=== PATIENT | female | born 1950 ===

== ENCOUNTER 2018-10-02 20:13 | Inpatient (IN) | payer MEDICARE, OTHER ==
[~2018-10-02] VITALS: Ht 154.9 cm; Wt 59.2 kg
[2018-10-02 21:20] LABS: BASOPHILS # (AUTO) 0.1 (0.0-0.1); BASOPHILS % 0.7 % (0.0-1.0); EOSINOPHILS # (AUTO) 0.4 (0.0-0.4); EOSINOPHILS % 2.5 % (0.0-6.0); HEMATOCRIT 42.5 % (34.2-44.1); HEMOGLOBIN 14.3 g/dL (12.0-16.0); LYMPHOCYTES # (AUTO) 2.6 (1.0-3.2); LYMPHOCYTES % 18.1 % (18.0-39.1); MEAN CORPUSCULAR HEMOGLOBIN 30.3 pg (28-32); MEAN CORPUSCULAR HGB CONC 33.6 g/dL (31-35); MONOCYTES # (AUTO) 0.7 (0.2-0.8); MONOCYTES % 4.6 % (4.4-11.3); NEUTROPHILS # (AUTO) 10.4 (2.1-6.9); NEUTROPHILS % 73.7 % (38.7-80.0); PLATELET COUNT 161 x10e3/uL (140-360); RED BLOOD COUNT 4.72 x10e6/uL (3.6-5.1); RED CELL DISTRIBUTION WIDTH 13.8 % (11.7-14.4)
--- NOTE | 2018-10-02 22:03 | Diagnostic Imaging Report ---
EXAMINATION: CHEST SINGLE (PORTABLE) INDICATION: CHEST PAIN COMPARISON: None FINDINGS: AP view TUBES and LINES: None. LUNGS: Lungs are well inflated. Lungs are clear. There is no evidence of pneumonia or pulmonary edema. PLEURA: No pleural effusion or pneumothorax. HEART AND MEDIASTINUM: Aortic arch calcifications. The cardiomediastinal silhouette is otherwise unremarkable. BONES AND SOFT TISSUES: No acute osseous lesion. Soft tissues are unremarkable. UPPER ABDOMEN: No free air under the diaphragm. IMPRESSION: No acute thoracic abnormality. Signed by: DR. Raheel Edgar MD on 10/02/2018 9:59 PM
[2018-10-02] MEDS ORDERED: ONDANSETRON HCL INJ 2 MG/ML VIAL IV STA (22:08)
--- NOTE | 2018-10-02 22:12 | NUR ---
GRE[facility] REDRAWN
--- NOTE | 2018-10-02 22:12 | NUR ---
BILATERAL ARM BP TAKEN
[2018-10-02] MEDS ORDERED: MORPHINE SULFATE INJ 4 MG/ML INJ IV ONE (22:15)
[2018-10-02] MEDS ORDERED: CLONIDINE HCL 0.1 MG TAB PO ONE (22:15)
[2018-10-02] MEDS ORDERED: METOPROLOL TARTRATE INJ 1 MG/ML VIAL IV ONE ×2 (22:15→23:00)
[2018-10-02] MEDS ORDERED: PANTOPRAZOLE 40 MG 10ML VIAL IV STA (22:20)
[2018-10-02 22:25] LABS: BILIRUBIN,URINE NEGATIVE (NEGATIVE); CLARITY,URINE CLEAR (CLEAR); COLOR,URINE STRAW (YELLOW); KETONES,URINE NEGATIVE (NEGATIVE); LEUKOCYTE ESTERASE ,URINE NEGATIVE (NEGATIVE); NITRITE,URINE NEGATIVE (NEGATIVE); PROTEIN,URINE DIPSTICK 2+ (NEGATIVE); URINE UROBILINOGEN 0.2 mg/dL (0.2 - 1)
[2018-10-02 22:37] LABS: BACTERIA,URINE MODERATE /HPF; EPITHELIAL CELLS,URINE FEW /LPF; RBC,URINE 0-5 /HPF (0-5)
[2018-10-02 22:42] LABS: ALBUMIN/GLOBULIN RATIO 1.2 (0.8-2.0); ANION GAP 13.5 mmol/L (8-16); CALCIUM 9.6 mg/dL (8.4-10.2); CREATININE, SERUM 1.03 mg/dL (0.57-1.11); POTASSIUM 3.5 mmol/L (3.5-5.1)
[2018-10-02 22:51] LABS: AMYLASE 88 U/L (25-125); LIPASE 50 U/L (8-78)
[2018-10-02 22:56] LABS: INR 0.87; PROTHROMBIN TIME 12.7 seconds (11.9-14.5)
[2018-10-02 22:57] LABS: PARTIAL THROMBOPLASTIN TIME 26.6 seconds (23.8-35.5)
[2018-10-02] MEDS ORDERED: SODIUM CHLORIDE 0.9% 250ML 250 ML IV ONE (23:30)
[2018-10-03] VITALS (36 sets, daily range): BP systolic 125–170; BP diastolic 61–147
--- NOTE | 2018-10-03 01:38 | Diagnostic Imaging Report ---
EXAM: CT Abdomen and Pelvis WITH contrast INDICATION: ^upper abd pain radiating to between shoulder blades ^Y COMPARISON: None. TECHNIQUE: Abdomen and pelvis were scanned utilizing a multidetector helical scanner from the lung base to the pubic symphysis after administration of IV contrast. Coronal and sagittal reformations were obtained. Routine protocol was performed. Scan was performed during portal venous phase. IV CONTRAST: 100 mL of Isovue-370 ORAL CONTRAST: Water COMPLICATIONS: None RADIATION DOSE: Total DLP: 991.1 mGy*cm Estimated effective dose: (DLP x 0.015 x size factor) mSv Dose modulation, iterative reconstruction, and/or weight based adjustment of the mA/kV was utilized to reduce the radiation dose to as low as reasonably achievable. FINDINGS: LINES and TUBES: None. LOWER THORAX: Please refer to same-day chest CTA. HEPATOBILIARY: No focal hepatic lesions. No biliary ductal dilation. GALLBLADDER: No radio-opaque stones or sludge. No wall thickening. SPLEEN: No splenomegaly. PANCREAS: No focal masses or ductal dilatation. ADRENALS: No adrenal nodules KIDNEYS/URETERS: Kidneys enhance symmetrically. No hydronephrosis. Scattered subcentimeter hypodensities are too small to characterize. Scattered lobulations. No stones. GI TRACT: No abnormal distention, wall thickening, or evidence of bowel obstruction. Appendix is normal. PELVIC ORGANS/BLADDER: Hysterectomy. Otherwise, unremarkable. LYMPH NODES: No lymphadenopathy. VESSELS: Abdominal aortic aneurysm with scattered areas of mural thrombus. Aorta measures up to 3.8 cm at the diaphragmatic hiatus, 3.8 cm slightly inferior to the SMA origin, 3.8 cm at the HERMES origin. PERITONEUM / RETROPERITONEUM: No free air or fluid. BONES: There are degenerative changes in the lumbar spine. SOFT TISSUES: Unremarkable. IMPRESSION: 1. No acute abnormalities in the abdomen or pelvis. 2. Abdominal aortic aneurysm measuring up to 3.8 cm. Signed by: DR. Raheel Edgar MD on 10/03/2018 1:34 AM
[2018-10-03] MEDS: NICARDIPINE 20MG/200ML PREMIX 200 ML IV PRN ×2 (01:46→05:13)
--- NOTE | 2018-10-03 01:49 | Diagnostic Imaging Report ---
EXAM: CTA Chest WITHOUT AND WITH contrast 10/03/2018 10:07 PM INDICATION: Chest/mid scapular pain. eval for aortic disection ^Y COMPARISON: Chest x-ray 09/29/2018 TECHNIQUE: Chest was scanned utilizing a multidetector helical scanner from the lung apex through the level of the adrenal glands without and with administration of IV contrast. Coronal and sagittal reformations were obtained. Dissection protocol was performed. IV CONTRAST: 100 mL of Isovue-370 COMPLICATIONS: None RADIATION DOSE: Total DLP: 991 mGy*cm Estimated effective dose: (DLP x 0.014 x size factor) mSv Dose modulation, iterative reconstruction, and/or weight based adjustment of the mA/kV was utilized to reduce the radiation dose to as low as reasonably achievable. 3-D volume renderings were created. FINDINGS: LINES/ TUBES: None. LUNGS AND AIRWAYS: The lungs are unremarkable. Airways are normal. PLEURA: The pleural spaces are clear. HEART AND MEDIASTINUM: Aberrant right subclavian artery with retroesophageal course. The thyroid gland is normal. No mediastinal, hilar or axillary lymphadenopathy. The heart is normal in size.. There is no pericardial effusion. Coronary artery artery calcifications and stents. Aortic plaques: Severe. All of the arch branch vessels appear widely patent in their proximal portions. Returning Officer dimensions of the thoracic aorta are as follows: 3.4 cm at the mid ascending aorta 3.1 cm at the proximal descending thoracic aorta 2.9 cm at the distal descending thoracic aorta. Please refer to same-day CT abdomen for description of abdominal aortic aneurysm. Hepatic artery with direct takeoff from the aorta. UPPER ABDOMEN: Please refer to same-day CT chest abdomen and pelvis. BONES: There are degenerative changes in the thoracic spine. SOFT TISSUES: Unremarkable. IMPRESSION: No evidence of aortic dissection. Borderline aneurysmal dilatation of the proximal descending thoracic aorta. Signed by: DR. Raheel Edgar MD on 10/03/2018 1:46 AM
[2018-10-03] MEDS ORDERED: DEXTROSE 50% SYRINGE 50 ML IV PRN (02:15)
[2018-10-03] MEDS ORDERED: SODIUM CHLORIDE FLUSH 10 ML SYR INJ PRN (02:15)
[2018-10-03] MEDS ORDERED: ONDANSETRON HCL INJ 2 MG/ML VIAL IV PRN (02:15)
--- OUTSIDE RECORDS SUMMARY | 2018-10-03 02:15 | XMS REPORT ---
Author Author [facility] Address Unknown Phone Unavailable Care Team Providers Care Crm Consultant Name Role Phone Mg BURROWS Unavailable Unavailable Problems This patient has no known problems. Allergies, Adverse Reactions, Alerts This patient has no known allergies or adverse reactions. Medications This patient has no known medications. Results Test Description Test Time Test Comments Text Results Atomic Results Result Comments CTA CHEST 2018-10-03 01:35:00 [place] [address] Patient Name: KANDICE REGAN MR #: [id number] : 1950 Age/Sex: 67/F Req #: [id number] Adm Physician: Ordered by: SHARYN BURROWS MD Report #: [id number] Location: ER Room/Bed: Procedure: [id number] CT/CTA CHEST Exam Date: Exam Time: REPORT STATUS: Signed EXAM: CTA Chest WITHOUT AND WITH contrast 10/03/2018 10:07 PM INDICATION: Chest/mid scapular pain. eval for aortic disection Y COMPARISON: Chest x- ray 09/29/2018 TECHNIQUE: Chest was scanned utilizing a multidetector helical scanner from the lung apex through the level of the adrenal glands without and with administration of IV contrast. Coronal and sagittal reformations were obtained. Dissection protocol was performed. IV CONTRAST: 100 mL of Isovue-370 COMPLICATIONS: None RADIATION DOSE: Total DLP: 991 mGy*cm Estimated effective dose: (DLP x 0.014 x size factor) mSv Dose modulation, iterative reconstruction, and/or weight based adjustment of the mA/kV was utilized to reduce the radiation dose to as low as reasonably achievable. 3-D volume renderings were created. FINDINGS: LINES/ TUBES: None. LUNGS AND AIRWAYS: The lungs are unremarkable. Airways are normal. PLEURA: The pleural spaces are clear. HEART AND MEDIASTINUM: Aberrant right subclavian artery with retroesophageal course. The thyroid gland is normal. No mediastinal, hilar or axillary lymphadenopathy. The heart is normal in size.. There is no pericardial effusion. Coronary artery artery calcifications and stents. Aortic plaques: Severe. All of the arch branch vessels appear widely patent in their proximal portions. Publicity Expert dimensions of the thoracic aorta are as follows: 3.4 cm at the mid ascending aorta 3.1 cm at the proximal descending thoracic aorta 2.9 cm at the distal descending thoracic aorta. Please refer to same-day CT abdomen for description of abdominal aortic aneur ysm. Hepatic artery with direct takeoff from the aorta. UPPER ABDOMEN: Please refer to same-day CT chest abdomen and pelvis. BONES: There are degenerative changes in the thoracic spine. SOFT TISSUES: Unremarkable. IMPRESSION: No evidence of aortic dissection. Borderline aneurysmal dilatation of the proximal descending thoracic aorta. Signed by: DR. Raheel Edgar MD on 10/03/2018 1:46 AM Dictated By: RAHEEL EDGAR MD 5 Transcribed By: AUSTIN on 10/03/18145 COPY TO: SHARYN BURROWS MD CT ABDOMEN/PELVIS W 2018-10-03 01:22:00 [place] [address] Patient Name: KANDICE REGAN MR #: [id number] : 1950 Age/Sex: 67/F Req #: [id number] Adm Physician: Ordered by: SHARYN BURROWS MD Report #: [id number] Location: Room/Bed: Procedure: [id number] CT/CT ABDOMEN/PELVIS W Exam Date: Exam Time: REPORT STATUS: Signed EXAM: CT Abdomen and Pelvis WITH contrast INDICATION: upper abd pain radiating to between shoulder blades Y COMPARISON: None. TECHNIQUE: Abdomen and pelvis were scanned utilizing a multidetector helical scanner from the lung base to the pubic symphysis after administration of IV contrast. Coronal and sagittal reformations were obtained. Routine protocol was performed. Scan was performed during portal venous phase. IV CONTRA ST: 100 mL of Isovue-370 ORAL CONTRAST: Water COMPLICATIONS: None RADIATION DOSE: Total DLP: 991.1 mGy*cm Estimated effective dose: (DLP x 0.015 x size factor) mSv Dose modulation, iterative reconstruction, and/or weight based adjustment of the mA/kV was utilized to reduce the radiation dose to as low as reasonably achievable. FINDINGS: LINES and TUBES: None. LOWER THORAX: Please refer to same-day chest CTA. HEPATOBILIARY: No focal hepatic lesions. No biliary ductal dilation. GALLBLADDER: No radio-opaque stones or sludge. No wall thickening. SPLEEN: No splenomegaly. PANCREAS: No focal masses or ductal dilatation. ADRENALS: No adrenal nodules KIDNEYS/URETERS: Kidneys enhance symmetrically. No hydronephrosis. Scattered subcentimeter hypodensities are too small to characterize. Scattered lobulations. No stones. GI TRACT: No abnormal distention, wall thickening, or evidence of bowel obstruction. Appendix is normal. PELVIC ORGANS/BLADDER: Hysterectomy. Otherwise, unremarkable. LYMPH NODES: No lymphadenopathy. VESSELS: Abdominal aortic aneurysm with scattered areas of mural thrombus. Aorta measures up to 3.8 cm at the diaphragmatic hiatus, 3.8 cm slightly inferior to the SMA origin, 3.8 cm at the HERMES origin. PERITONEUM / RETROPERITONEUM: No free air or fluid. BONES: There are degenerative changes in the lumbar spine. SOFT TISSUES: Unremarkable. IMPRESSION: 1. No acute abnormalities in the abdomen or pelvis. 2. Abdominal aortic aneurysm measuring up to 3.8 cm. Signed by: DR. Raheel Edgar MD on 10/03/2018 1:34 AM Dictated By: RAHEEL EDGAR MD 3 Transcribed By: AUSTIN on 10/03/18133 COPY TO: SHARYN BURROWS MD CHEST SINGLE (PORTABLE) 2018-10-02 21:58:00 [place] [address] Patient Name: KANDICE REGAN MR #: [id number] : 1950 Age/Sex: 67/F Req #: [id number] Adm Physician: Ordered by: SHARYN BURROWS MD Report #: [id number] Location: ER Room/Bed: Procedure: [id number] DX/CHEST SINGLE (PORTABLE) Exam Date: 10/02/18 Exam Time: 2100 REPORT STATUS: Signed EXAMINATION: CHEST SINGLE (PORTABLE) INDICATION: CHEST PAIN COMPARISON: None FINDINGS: AP view TUBES and LINES: None. LUNGS: Lungs are well inflated. Lungs are clear. There is no evidence of pneumonia or pulmonary edema. PLEURA: No pleural effusion or pneumothorax. HEART AND MEDIASTINUM: Aortic arch calcifications. The cardiomediastinal silhouette is otherwise unremarkable. BONES AND SOFT TISSUES: No acute osseous lesion. Soft tissues are unremarkable. UPPER ABDOMEN: No free air under the diaphragm. IMPRESSION: No acute thoracic abnormality. Signed by: DR. Raheel Edgar MD on 10/02/2018 9:59 PM Dictated By: RAHEEL EDGAR MD 58 Transcribed By: AUSTIN on 10/02/182158 COPY TO: SHARYN BURROWS MD
[2018-10-03] MEDS ORDERED: SODIUM CHLORIDE 0.9% 100 ML 100 ML ONE (03:49)
[2018-10-03] MEDS ORDERED: IOPAMIDOL 370 MG/ML 200 ML INFUS..BTL INJ ONE (03:50)
[2018-10-03] MEDS: INSULIN REGULAR, HUMAN 100 UNIT/1 ML 3ML VIAL SQ SCH ×4 (07:30→20:50)
--- NOTE | 2018-10-03 08:00 | NUR ---
Dr Aranda to bedside. Patient and significant other aware of diagnosis and agree with plan of care. Orders rec'd. Echo and renal US pending, department aware.
[2018-10-03] MEDS: PANTOPRAZOLE 40 MG 10ML VIAL IV SCH ×2 (09:11→17:05)
[2018-10-03] MEDS: METOPROLOL SUCCINATE 25 MG TAB XL PO SCH (09:11)
[2018-10-03] MEDS: ASPIRIN 325 MG TAB PO SCH (09:11)
[2018-10-03 09:27] LABS: FREE THYROXINE INDEX 2.4624 (1.4-3.8); THYROID STIMULATING HORMONE 0.901 uIU/mL (0.350-4.940)
[2018-10-03] MEDS ORDERED: PANTOPRAZOLE SOD 40 MG TABEC PO ONE (09:30)
--- NOTE | 2018-10-03 09:50 | History and Physical ---
Patient comes in with abdominal pain and back pain. HISTORY OF PRESENTING ILLNESS: This is Ms. Jania Lancaster with a history of coronary artery disease and with a history of hypertension with usual state of health until she was sitting down to eat yesterday. After eating soup, the patient got up and had a sudden bout of back pain which is described as 10 out of 10 in intensity, lasted all day long and lasted through the night in the ER. Patient came in, was admitted for rule out acute coronary syndrome and also for history of coronary artery disease and abdominal pain. PAST MEDICAL HISTORY 1. History of coronary artery disease. 2. History of hypertension. 3. History of hyperlipidemia. PAST SURGICAL HISTORY: History of having coronary stent. Patient had a stent about 6 years ago. Otherwise noncontributory. MEDICATIONS: Medication noncompliance. The patient has been taking no medicine for the last 2 to 3 years. She was on lisinopril-hydrochlorothiazide, dose unknown, probably 20/12.5. Stopped her statins and also stopped her beta blockade. SOCIAL HISTORY: No ETOH, no IV drug abuse. Patient does smoke. She smokes about half pack a day every day. FAMILY HISTORY: Positive for coronary artery disease in both father and mother. REVIEW OF SYSTEMS: Negative for chest pain. No shortness of breath. Positive for some nausea yesterday. No vomiting, no diarrhea, no constipation, no rectal bleeding, no hematochezia, no hematemesis, no diplopia, no blurry vision. Positive for back pain and positive also for reflux symptoms. PHYSICAL EXAMINATION GENERAL: Patient is alert and oriented x3. VITAL SIGNS: Temperature is 98.1, pulse of 78, blood pressure 152/78. She is on Cardene drip. Pulse oximetry 100% on room air. HEENT: Normocephalic, atraumatic. Pupils are reactive to light and accommodation. CVS: S1, S2 normal. Regular rate and rhythm. ABDOMEN: Nontender, nondistended. EXTREMITIES: No clubbing. No cyanosis. No edema. MUSCULOSKELETAL: Back, thoracic spine, no tenderness palpated. LABORATORY VALUES: Initial white count was 14,000 with shift of 10.4, hemoglobin of 14.3 and hematocrit of 42.5. Chemistries show sodium of 139, potassium of 3.5, BUN of 26, creatinine of 1.03. Glucose was 150. ALT, AST, alkaline phosphatase are normal. CK-MB 1.0, troponin 0.067, CK was 166, BNP was 98.7. Amylase 88, lipase 50. Urine showed trace blood, ketones negative, leukocyte esterase negative, and white count was 6 to 10 present. IMAGING STUDIES: Initial chest x-ray shows no acute thoracic abnormalities. Chest CT showed 3.4 aorta diameter and 3.1 cm proximal descending aorta, and 2.9 thoracic aorta. The patient otherwise, have no evidence of aortic dissections. Abdominal CT and pelvis shows no acute abnormalities in the abdomen or pelvis. Abdominal aortic aneurysm measuring up to 3.8 cm. ASSESSMENT 1. Hypertensive emergency. Patient is on the Cardene drip at this time. Plan is to down titrating the drip. 2. Patient can be added on a beta blockade. PLAN 1. I am going to start the patient on metoprolol XL 25 mg. 2. Start the patient on statin, atorvastatin 40 mg. Check lipids. Echocardiogram is ordered. 3. Also, consult with has been done too. 4. Patient is a smoker. Smoking cessation has been advised and with a strong family history of heart disease and heart disease in the past with smoking, a stress test/cardiac cath has been recommended. Patient will follow up with cardiology on that. We will continue to monitor the patient. Labs will be done tomorrow for leukocytosis to down trend it and also culture urine. Further recommendation per clinical course. Job#: [id number]
[2018-10-03] MEDS ORDERED: HYDROCHLOROTHIAZIDE 25 MG TAB PO SCH (10:45)
[2018-10-03] MEDS ORDERED: CLOPIDOGREL BISULFATE 75 MG TAB PO ONE (11:00)
[2018-10-03] MEDS: LISINOPRIL 10 MG TAB PO SCH ×2 (11:28→17:05)
--- NOTE | 2018-10-03 13:47 | Diagnostic Imaging Report ---
Retroperitoneal ultrasound Indication: Pain Technique: Select images from retroperitoneal ultrasound provided for interpretation: Comparison: CT abdomen/pelvis 0018 hours. Findings: The right kidney measures 9.9 cm in greatest length. The echotexture is mildly increased. There is no evidence for mass. There is no collecting system dilatation or evidence of obstruction. No renal calculi evident. No adjacent free fluid or fluid collections. The left kidney measures 10.7 cm in greatest length. The echotexture is mildly increased. There is no evidence for mass. There is no collecting system dilatation or evidence of obstruction. No renal calculi evident. No adjacent free fluid or fluid collections. Bladder is well distended and is normal. Ureteral jets are visible. No free fluid in the pelvis. Survey images of the liver and spleen demonstrate no abnormalities. IMPRESSION: 1. Mildly increased renal echotexture suggestive of medical renal disease. No hydronephrosis or renal mass. 2. Sonographically normal bladder. Signed by: Dr. Reyes Ray MD on 10/03/2018 1:43 PM
--- NOTE | 2018-10-03 15:37 | Consultation ---
DATE OF CONSULTATION: October 03, 2018 CARDIAC CONSULTATION REASON FOR CONSULTATION: Malignant hypertension, abdominal, and chest pain. HISTORY: This is a very and very and very poorly historian. She is 67. She is . She does not take any medication. She is known to have coronary artery disease status post 2 stent placements 6 years ago in [facility] and hypertension. She is here with her who is working here from [place]. They are on their way back this weekend to [place]. She came to this institution because she started having sudden back pain, epigastric, and possible lower retrosternal pain. There was no nausea and no vomiting. The pain was very severe, lasted all the day long, and then it got progressively worse. She was worried about that and she came to the emergency room. Her blood pressure was quite elevated with systolic of almost 200. She was started on nicardipine. Her cardiac enzymes are normal. Her CT chest showed dilated ascending aorta at 3.8, abdominal aorta at 3.8 cm only. She was started on nicardipine, admitted for further management. Cardiac consultation is obtained. Serial cardiac enzymes are negative. Patient said she is not having angina prior to this admission. She is relatively active. She denied having any orthopnea and paroxysmal nocturnal dyspnea. Her pain is not dissecting in nature. PAST MEDICAL HISTORY 1. Coronary artery disease status post 2 stents 6 years ago in [facility]. 2. Hypertension. 3. Hyperlipidemia. 4. Hysterectomy. 5. Tonsillectomy. 6. Left breast lumpectomy. HOME MEDICATIONS: None. She does not take any medications. SOCIAL HISTORY: She is . Unfortunately, she is a smoker, but she is not alcohol drinker. FAMILY HISTORY: Father at age 69. He was diabetic and possible coronary artery disease. Mother of breast cancer at age 52. Three brothers, she lost a brother to complication of diabetes in his 60s. Eight sisters, 3 sisters , 1 of them of diabetes complication and second with ovarian cancer. REVIEW OF SYSTEMS: Was extensive, will be summarized for clarity. GENERAL: No fever. No chills. HEENT: No vision problem. No hearing problem. CARDIAC AND PULMONARY: As per acute illness. No pleuritic chest pain. No leg swelling. GI: No hematemesis. No melena. : No hematuria. No dysuria. MUSCULOSKELETAL: Chronic back pain. NEUROLOGICAL: No seizure activity. No weakness. PHYSICAL EXAMINATION VITAL SIGNS: Height of 5 feet 1 inches, weight of 126 pounds, blood pressure 150/80, on nicardipine, heart rate of 80, and respiratory rate of 18. HEENT: Pupils are reactive. NECK: No elevation of jugular venous pulsation. No bruit. CHEST: Clear to auscultation and percussion. HEART: PMI 5th left intercostal space. Normal 1st and 2nd heart sounds. ABDOMEN: Soft with good bowel sounds. No organomegaly. No abdominal bruits. EXTREMITIES: No cyanosis. No clubbing. No edema. Distal pulses are present. There is no delay between pulses. NEUROLOGIC: Awake, alert, and oriented. No motor or sensory deficits. LABORATORY DATA: BUN of 26, creatinine of 1, sodium of 139, and potassium of 3.9. White blood cell count of 14.1, hemoglobin of 14.3, and hematocrit 42%. TSH of 0.9. CT chest and CT abdomen as per report. There is abdominal aortic aneurysm at 3.8 cm, but there is no evidence of dissection. IMPRESSION AND PLAN 1. Hypertensive emergency. 2. Pain back does not seem to be dissecting abdominal aortic aneurysm pain. I am very worried about coronary artery disease. Patient is poorly historian. We had lengthy discussion with the patient and her . Plan will be for aggressive medical therapy. Patient will start on lisinopril and hydrochlorothiazide. Beta servando is a must. Statin is started already. We will load with Plavix. We will try to control her blood pressure. Options of workup are discussed with the patient and her . They prefer to go back to home and have their workup home after stabilization. We will follow patient's progression with you and would like to thank you for your kind referral. Job#: [id number] GLENIS
[2018-10-03 17:25] LABS: CREATINE KINASE MB 0.8 ng/mL (0-5.0)
--- NOTE | 2018-10-03 18:52 | NUR ---
Spoke with Dr Aranda, orders rec'd. Bedside report given to NAIDA Sousa.
[2018-10-03] MEDS: ATORVASTATIN 20 MG TAB PO SCH (21:10)
[2018-10-03] MEDS: MORPHINE SULFATE 2 MG/ML SYR IV PRN (21:37)
[2018-10-03] MEDS ORDERED: MORPHINE SULFATE INJ 4 MG/ML INJ ONE (21:41)
--- NOTE | 2018-10-03 21:43 | NUR ---
Medicated for c/o pain.
[2018-10-04] VITALS (38 sets, daily range): BP systolic 129–177; BP diastolic 64–102
--- NOTE | 2018-10-04 04:00 | NUR ---
Blood drawn for AM labs.
[2018-10-04] MEDS ORDERED: MORPHINE SULFATE INJ 4 MG/ML INJ ONE (04:15)
[2018-10-04] MEDS: MORPHINE SULFATE 2 MG/ML SYR IV PRN (04:24)
--- NOTE | 2018-10-04 04:24 | NUR ---
Medicated for c/o back pain.
[2018-10-04 04:53] LABS: BASOPHILS # (AUTO) 0.1 (0.0-0.1); BASOPHILS % 0.5 % (0.0-1.0); EOSINOPHILS # (AUTO) 0.4 (0.0-0.4); EOSINOPHILS % 2.9 % (0.0-6.0); HEMATOCRIT 42.1 % (34.2-44.1); HEMOGLOBIN 13.9 g/dL (12.0-16.0); LYMPHOCYTES # (AUTO) 1.9 (1.0-3.2); LYMPHOCYTES % 13.9 % (18.0-39.1); MEAN CORPUSCULAR HEMOGLOBIN 29.3 pg (28-32); MEAN CORPUSCULAR VOLUME 88.8 fL (81-99); MONOCYTES % 7.3 % (4.4-11.3); NEUTROPHILS # (AUTO) 10.1 (2.1-6.9); PLATELET COUNT 152 x10e3/uL (140-360); RED BLOOD COUNT 4.74 x10e6/uL (3.6-5.1); RED CELL DISTRIBUTION WIDTH 13.7 % (11.7-14.4)
[2018-10-04 05:14] LABS: ALBUMIN 3.6 g/dL (3.5-5.0); ANION GAP 13.2 mmol/L (8-16); CALCIUM 9.5 mg/dL (8.4-10.2); CREATININE, SERUM 1.08 mg/dL (0.57-1.11); POTASSIUM 3.2 mmol/L (3.5-5.1)
[2018-10-04 05:18] LABS: CHOL/HDL RATIO 4.3 (3.0-3.6)
[2018-10-04] MEDS: INSULIN REGULAR, HUMAN 100 UNIT/1 ML 3ML VIAL SQ SCH ×4 (07:30→21:00)
[2018-10-04] MEDS: MORPHINE SULFATE INJ 4 MG/ML INJ IV PRN ×2 (08:25→15:37)
--- NOTE | 2018-10-04 08:32 | NUR ---
Dr Aranda to bedside. Orders rec'd.
--- NOTE | 2018-10-04 08:58 | Progress Note ---
DATE: SUBJECTIVE: Patient is here for chest pain, hypertensive emergency. Still on Cardene drip. Currently, patient still has back pain which is intractable at times and continues to have increased blood pressure secondary to the back pain. ACTIVE MEDICATIONS: Aspirin, atorvastatin, hydrochlorothiazide, lisinopril, metoprolol, nicardipine drip, nicotine transdermal, pantoprazole, and sodium chloride. Patient did not take the Prinivil or the hydrochlorothiazide yesterday secondary to apparent cough that has been persistent for her. PHYSICAL EXAMINATION VITAL SIGNS: Temperature is afebrile at 98.6, blood pressure is 148/86, pulse oximetry 98%. HEENT: Normocephalic, atraumatic. Pupils are reactive to light and accommodation. CVS: S1, S2 normal. Regular rate and rhythm. ABDOMEN: Nontender, nondistended. EXTREMITIES: No clubbing, no cyanosis, and/or no edema. ASSESSMENT 1. Accelerated hypertension. 2. Back pain very concerning for coronary artery disease. 3. Hyperlipidemia. 4. History of coronary artery disease. PLAN 1. We have talked to the patient at length. It would possibly be better to do cardiac investigations while the patient is here and possible cardiac cath by Dr. Miranda. 2. Continue on beta blockade, statin and we will switch her to an ARB because of her cough. Continue monitoring the patient. Aspirin is on board and possible cath by Dr. Miranda later on or in the morning. Further recommendation per clinical course. We will continue monitoring the patient along with the consultants. Job#: [id number]
[2018-10-04] MEDS ORDERED: CLOPIDOGREL BISULFATE 75 MG TAB PO SCH (09:00)
[2018-10-04] MEDS ORDERED: POTASSIUM CHLORIDE 10MEQ EA PO ONE (09:00)
[2018-10-04] MEDS ORDERED: LOSARTAN POTASSIUM 100 MG TAB PO SCH (09:00)
[2018-10-04] MEDS: PANTOPRAZOLE 40 MG 10ML VIAL IV SCH ×2 (10:00→16:06)
[2018-10-04] MEDS: METOPROLOL SUCCINATE 25 MG TAB XL PO SCH (10:00)
[2018-10-04] MEDS: NICOTINE 14 MG/EA PATCH TOP SCH (10:10)
[2018-10-04] MEDS: ASPIRIN 325 MG TAB PO SCH (11:23)
[2018-10-04] MEDS: SODIUM CHLORIDE 0.9% 1000ML 1,000 ML IV SCH ×3 (12:00→22:00)
[2018-10-04] MEDS ORDERED: SODIUM CHLORIDE 0.9% 1000ML 1,000 ML ONE ×2 (12:43→12:49)
[2018-10-04] MEDS ORDERED: FENTANYL CITRATE/PF 100MCG/2 ML INJ ONE (12:43)
[2018-10-04] MEDS ORDERED: MIDAZOLAM HCL 2 MG/2 ML VIAL ONE (12:43)
[2018-10-04] MEDS ORDERED: HEPARIN SOD/SOD CHLORIDE 2,000 ML ONE (12:43)
[2018-10-04] MEDS ORDERED: IOPAMIDOL 370 MG/ML 200 ML INFUS..BTL INJ ONE (12:43)
[2018-10-04] MEDS ORDERED: LIDOCAINE HCL 1% LOCAL INJ 20 ML VIAL ONE (12:44)
--- NOTE | 2018-10-04 13:20 | NUR ---
Dr Miranda at bedside. Patient to Tapering Machine Operator via bed.
--- NOTE | 2018-10-04 14:35 | NUR ---
1435 Patient to room via bed BP 192/95. RN states Dr Miranda will be to bedside in 15 minutes.
[2018-10-04] MEDS: LOSARTAN POTASSIUM 25 MG TAB PO SCH (16:06)
[2018-10-04] MEDS: AMLODIPINE BESYLATE 5 MG TAB PO SCH (16:07)
--- NOTE | 2018-10-04 20:27 | Operative Report ---
DATE OF PROCEDURE: October 04, 2018 TITLE OF PROCEDURES 1. Left cardiac catheterization. 2. Abdominal angiogram. INDICATIONS: Patient admitted, continued to have severe chest pain, requiring multiple morphine injections. Also, she got abdominal aortic aneurysm and she is also having severe abdominal pain. Patient is status post 2-vessel PCI and she is having repeated severe pain, requiring multiple pain medication. Case done urgently on Friday almost at 2 o'clock. TECHNICAL DETAILS: After the usual sterile preparation and draping procedure, intravenous Versed given for sedation and local Xylocaine for anesthesia. A 4-Macedonian sheath established in place. Ileana left and 3DRC catheter to engage the coronary, pigtail for hemodynamic measurement, left ventriculogram and abdominal angiogram. Of note because of presence of AAA, all the exchanges were done using long J-wire. There were no complications. No blood loss. Patient tolerated the procedure. RESULTS A. Coronary angiogram. 1. Left main, 70% diffuse disease with mean gradient of 5 mmHg on pullback from the left main to the aorta. 2. LAD is bifid lesion. There is stent in the LAD, which is totally occluded with faint collateral. There is 80% lesion in large diagonal. 3. Circumflex coronary artery. There is proximally 70% lesion. There is stent extending to the 1st OM, which is large. The proper circ is diffusely diseased after that origin giving small OM2. 4. Right coronary artery several plaques at 40% across its course. There was probably 50% at the mid RCA. B. Hemodynamics aorta pressure 140/80. LV pressure 140/20. C. Left ventriculogram in the right anterior oblique view, very hypercontractile ventricle with ejection fraction of 60%. Abdominal angiogram: There is definitely presence of abdominal aortic aneurysm, suprarenal and infrarenal. There are several calcified plaques and ulcerated plaque was noted just distal to the right renal artery. The right renal artery got severe diseased at its origin and the right kidney seems to be smaller than the left kidney. The left kidney origin is low. IMPRESSION 1. Severe left main and 2-vessel coronary artery disease. 2. Preserved left ventricular systolic function. 3. Dilated aortic root. 4. Abdominal aortic aneurysm, suprarenal and infrarenal with low origin of the left renal artery extending to the bifurcation. RECOMMENDATIONS: CV surgery evaluation. I should mention that we called the radiologist to review the CT scan of abdomen, both superior and inferior mesenteric artery. There is no dissecting aneurysm. COMPLICATIONS: None. BLOOD LOSS: None. Job#: [id number] RTY
[2018-10-04] MEDS: ATORVASTATIN 20 MG TAB PO SCH (21:15)
--- NOTE | 2018-10-04 22:10 | Consultation ---
DATE OF CONSULTATION: REASON FOR CONSULTATION: Coronary artery disease, evaluation for coronary artery bypass surgery; requested by Dr. Parish Miranda. HISTORY: I saw and evaluated this patient on October 04, 2018. She is a 67-year-old lady with a history of coronary artery disease and coronary artery stenting. She presented with back pain and lower retrosternal pain. There was no nausea or vomiting. The pain began in the morning and lasted all day. As it progressively worsened, she came to the emergency room. Blood pressure was elevated with systolic of almost 200. She was started on nicardipine. Cardiac enzymes were normal. A CT scan of the chest showed a somewhat dilated ascending aorta at 3.8 cm as well as an abdominal aorta that was somewhat dilated at 3.8 cm as well. Because of the chest pain, cardiac catheterization was performed today. There is a 70% left main coronary artery stenosis, there was an occluded stent in the LAD. There is a large diagonal. The LAD distal to the stent is quite small. There is a high-grade stenosis in the proximal circumflex. The right coronary artery has only 30% to 40% lesions and nothing high grade. Left ventriculogram shows EF 60%. Evaluation for surgery has been requested. The patient has had previous coronary artery stenting, but the details are unclear. She was on Plavix, but it was discontinued at some point, possibly because of cost. She was on lisinopril, but also discontinued this because of presumed side effects. There is no history of PND or orthopnea. She denies previous episodes of chest pain. CT scan did not show any evidence of dissection. There is no peripheral edema. Cardiac catheterization was performed on October 04, 2018. There is a history of coronary artery disease in her sisters. She is a smoker and continues to smoke. She was not taking any medicines at home. Referring business controller is Dr. Parish Miranda. PAST MEDICAL HISTORY: Coronary artery disease with stents that were placed in the [facility] about 6 years ago, positive for hypertension, hyperlipidemia, hysterectomy, tonsillectomy, and a lumpectomy. MEDICATIONS AT HOME: None. ALLERGIES: None. SOCIAL HISTORY: . One-pack per day smoker for many years. No alcohol or IV drugs. FAMILY HISTORY: Father at age 69 with a history of coronary artery disease. She has had 1 brother of diabetes in his 60s. She says that 2 of her sisters have had myocardial infarction. REVIEW OF SYSTEMS GENERAL: Negative for fatigue and malaise. NEUROLOGIC: Negative for focal weakness in the extremities or dysarthria. HEENT: Negative for decreased vision or decreased hearing. CARDIAC: Positive as above. PULMONARY: Negative for shortness of breath or wheezing. GI: No constipation or diarrhea. : Negative for hematuria or dysuria. ENDOCRINE: Negative for polyuria or polydipsia. VASCULAR: Negative for claudication. SKIN: Negative for rashes or itching. HEMATOLOGIC: Negative for clotting or bleeding. INFECTIOUS: Negative for fevers or sweating. PSYCHIATRIC: Negative for depression or anxiety. PHYSICAL EXAMINATION GENERAL: A well-developed, well-nourished lady, lying flat in bed in the ICU. is at the bedside. VITAL SIGNS: Blood pressure 170/60, pulse 80 and regular, respirations 16 and unlabored. NECK: Supple and nontender. No JVD. CARDIAC: Shows a regular rate and rhythm. There is a normal S1 and S2. There is no S3, S4, rub or murmur. LUNGS: Clear to auscultation and percussion. ABDOMEN: Globoid, benign. Good bowel sounds. No hepatosplenomegaly. BACK: No CVA tenderness. No muscular spasms. EXTREMITIES: No cyanosis, clubbing, or edema. VASCULAR: Carotids 2+/2+ bilaterally. No carotid bruits. Radials and brachials 2+/2+ bilaterally. Ulnars 1+/2+ bilaterally. Femorals 2+/2+ bilaterally. SKIN: No rashes or nonhealing ulcers. MUSCULOSKELETAL: Full range of motion in all joints. No joint swelling. NEUROLOGIC: Cranial nerves II-XII intact. Sensation is intact to light touch and pinprick bilaterally. Strength is 5/5 in all extremities. LYMPHATIC: Negative for cervical, clavicular, femoral adenopathy. LABORATORIES AND IMAGING: CT scan of the abdomen shows no abnormalities in the abdomen or pelvis. There is an abdominal aortic aneurysm measuring up to 3.8 cm. Chest x-ray shows normal mediastinal silhouette and no pulmonary abnormalities. White count 14.1, hemoglobin 14.3, hematocrit 42.5, platelet count 161,000. Sodium is 139, potassium 3.5, BUN is 26, creatinine is 1.03. Liver function tests are normal. Preliminary echocardiogram report performed at [facility] on 02/28/2016 shows ejection fraction of 55% to 60% with LVEDD 3.9 cm and LVEDS 2.9 cm. There is [id number] mitral regurgitation and trace tricuspid regurgitation. EKG shows normal sinus rhythm with possible old inferior infarct. IMPRESSION: Severe coronary artery disease. I agree with evaluation for coronary artery bypass surgery, which has been initiated. I described the operation to the patient and her who was at the bedside. Thank you very much for asking me to see this nice lady. Job#: [id number] CHERI
[2018-10-04] MEDS: NICARDIPINE 20MG/200ML PREMIX 200 ML IV PRN (22:19)
[2018-10-05] VITALS (71 sets, daily range): BP systolic 88–164; BP diastolic 58–107
[2018-10-05] MEDS: SODIUM CHLORIDE 0.9% 1000ML 1,000 ML IV SCH ×2 (03:41→07:25)
[2018-10-05] MEDS: MORPHINE SULFATE INJ 4 MG/ML INJ IV PRN ×2 (04:27→19:47)
--- NOTE | 2018-10-05 04:27 | NUR ---
Medicated for c/o back pain.
[2018-10-05 04:40] LABS: BASOPHILS # (AUTO) 0.1 (0.0-0.1); BASOPHILS % 0.6 % (0.0-1.0); EOSINOPHILS # (AUTO) 0.5 (0.0-0.4); EOSINOPHILS % 3.9 % (0.0-6.0); HEMATOCRIT 38.4 % (34.2-44.1); HEMOGLOBIN 12.8 g/dL (12.0-16.0); LYMPHOCYTES # (AUTO) 1.6 (1.0-3.2); LYMPHOCYTES % 12.8 % (18.0-39.1); MEAN CORPUSCULAR HGB CONC 33.3 g/dL (31-35); MEAN CORPUSCULAR VOLUME 90.1 fL (81-99); MONOCYTES # (AUTO) 1.2 (0.2-0.8); MONOCYTES % 9.1 % (4.4-11.3); NEUTROPHILS # (AUTO) 9.3 (2.1-6.9); NEUTROPHILS % 73.2 % (38.7-80.0); PLATELET COUNT 135 x10e3/uL (140-360); RED BLOOD COUNT 4.26 x10e6/uL (3.6-5.1); RED CELL DISTRIBUTION WIDTH 13.7 % (11.7-14.4)
[2018-10-05 04:59] LABS: ANION GAP 12.5 mmol/L (8-16); BLOOD UREA NITROGEN 19 mg/dL (7-26); BUN/CREATININE RATIO 22 (6-25); CALCIUM 8.9 mg/dL (8.4-10.2); CARBON DIOXIDE 20 mmol/L (22-29); CHLORIDE 109 mmol/L (98-107); CREATININE, SERUM 0.86 mg/dL (0.57-1.11); EST GLOMERULAR FILTRATION RATE > 60 ML/MIN (60-); GLUCOSE 104 mg/dL (74-118); POTASSIUM 3.5 mmol/L (3.5-5.1); SODIUM 138 mmol/L (136-145)
--- NOTE | 2018-10-05 06:55 | NUR ---
ASSESSMENT: Spiritual concern Pt nervous about procedure. Pt states she will be transferred to [facility] later today for procedure. Pt requested prayer. Intervention: Provided empathic listening and prayer. Provided information about availability of chaplains at [facility]. Outcome: Pt expressed appreciation for visit. GEORGE NIÑO Licensed Embalmer Supervisor Spiritual Care Department O: [phone] Pager: [phone] ([phone] number calling from)
--- NOTE | 2018-10-05 07:05 | Progress Note ---
DATE: Patient is here for back pain, history of coronary artery disease, history of accelerated hypertension. Patient is on Cardene drip. Patient had a cardiac cath yesterday, which showed severe left main and 2-vessel coronary artery disease, preserved left ventricular systolic function, dilated aortic arch, and abdominal aortic aneurysm. Pain still persists in the back, and is noted as 10/10 in intensity. Comes and goes, waxes and wanes. Currently, the patient is sleeping. No complaints at this time. MEDICATIONS: Amlodipine, aspirin, atorvastatin, insulin, losartan, metoprolol, morphine sulfate, Cardene drip, and pantoprazole. OBJECTIVE VITAL SIGNS: Patient's temperature is afebrile, pulse of 79, respirations of 18, blood pressure is 142/74, pulse oximetry 99% on room air. HEENT: Normocephalic and atraumatic. Pupils are reactive to light and accommodation. CV: S1 and S2 normal. Regular rate and rhythm. ABDOMEN: Nontender and nondistended. EXTREMITIES: No clubbing. No cyanosis. No edema. LABORATORY VALUES: Today's white count was 12,000. No left shift present. Chemistry: Sodium 138, potassium 3.5, BUN 19, creatinine of 0.86, and glucose is 177. Patient's hemoglobin A1c was 5.8. ASSESSMENT 1. Coronary artery disease with severe 3-vessel disease: Patient is scheduled to be transferred to [facility] for coronary artery bypass graft. 2. Back pain: Very unlikely aortic aneurysm. Patient shows no signs of dissection, and a size 3.8 cm. 3. Hypertension: Continue monitoring the patient. Continue on the Cardene drip for now. 4. Hyperglycemia: Diabetes has been ruled out. For further recommendations, will continue monitoring the patient and also further advice from cardiovascular surgery. Job#: [id number] ALFREDO
[2018-10-05] MEDS: INSULIN REGULAR, HUMAN 100 UNIT/1 ML 3ML VIAL SQ SCH ×3 (07:25→16:19)
[2018-10-05] MEDS: NICARDIPINE 20MG/200ML PREMIX 200 ML IV PRN (07:26)
[2018-10-05] MEDS: AMLODIPINE BESYLATE 5 MG TAB PO SCH ×2 (08:39→17:46)
[2018-10-05] MEDS: ASPIRIN 325 MG TAB PO SCH (08:39)
[2018-10-05] MEDS: METOPROLOL SUCCINATE 25 MG TAB XL PO SCH (08:39)
[2018-10-05] MEDS: LOSARTAN POTASSIUM 25 MG TAB PO SCH ×2 (08:39→17:46)
[2018-10-05] MEDS: NICOTINE 14 MG/EA PATCH TOP SCH (08:39)
[2018-10-05] MEDS: PANTOPRAZOLE 40 MG 10ML VIAL IV SCH ×2 (08:39→17:46)
[2018-10-05] MEDS: CARVEDILOL 12.5 MG TAB PO SCH ×2 (10:38→17:46)
--- NOTE | 2018-10-05 13:30 | NUR ---
titrated cardene gtt off
--- NOTE | 2018-10-05 15:58 | NUR ---
CM SPOKE WITH CONTINUOUS IMPROVEMENT LEAD SANDRA TODAY REGARDING THIS PT STATES ORDERS YESTERDAY TO TRANSFER THIS PT TO [facility] FOR CABG UNDER DR DOMINICK DAVID IN HOUSE SUPERVISORS OFFICE ACCORDING TO SANDRA FLORES STATES TODAY SHE HAS SPOKE WITH THE TRANSFER CENTER 3 X; SPOKE WITH [facility] AND THEY ARE STILL HOLDING FOR AN ICU BED CHOICE LETTER SIGNED TODAY BY PT FOR [facility] NURSING WORKING WITH PT REGARDING MPOA CM TO FOLLOW AND ASSIST CONTINUOUS IMPROVEMENT LEAD IN ANY WAY NECESSARY TO FACILITATE THIS TRANSFER MY NAME AND NUMBER IS ON THE BOARD IN THE ICU
--- NOTE | 2018-10-05 19:45 | NUR ---
Report called to Alfredo PASCAL at [facility] [phone]
--- NOTE | 2018-10-05 19:46 | NUR ---
Ambulance ETA 30 minutes
--- NOTE | 2018-10-05 20:50 | NUR ---
PATIENT TRANSFERRED TO [facility]3] AND RE[facility] GIV[facility] [place] [facility] [place] FOR [place]SP[place]
[2018-10-05] MEDS ORDERED: ATORVASTATIN 40 MG TAB PO SCH (21:00)
--- NOTE | 2018-10-05 21:08 | NUR ---
PATIENT PACKET OF PAPERWORK FOUND, PATIENT REPRESENTATIVE NOTIFIED TO NOTIFY EMS TO COME AND GET TRANSFER PAPERS
== END 2018-10-05 20:50 | disposition short-term general hospital (02) | DRG 287 ==
LOC: ER 20:13 → ERHOLD 10-03 02:11 → ICU 10-03 03:12
PROVIDERS: ADMIT Family Medicine; ATTEND Family Medicine
PROC: 4A023N7 Measurement of Cardiac Sampling and Pressure, Left Heart, Percutaneous Approach (ICD-10-PCS; principal; 2018-10-04)
PROC: B2111ZZ Fluoroscopy of Multiple Coronary Arteries using Low Osmolar Contrast (ICD-10-PCS; 2018-10-04)
PROC: B2151ZZ Fluoroscopy of Left Heart using Low Osmolar Contrast (ICD-10-PCS; 2018-10-04)
PROC: B4101ZZ Fluoroscopy of Abdominal Aorta using Low Osmolar Contrast (ICD-10-PCS; 2018-10-04)
DX: I71.4 Abdominal aortic aneurysm, without rupture (principal); I16.1 Hypertensive emergency; I25.10 Atherosclerotic heart disease of native coronary artery without angina pectoris; Z95.5 Presence of coronary angioplasty implant and graft; I10 Essential (primary) hypertension; E78.5 Hyperlipidemia, unspecified; F17.210 Nicotine dependence, cigarettes, uncomplicated; R73.9 Hyperglycemia, unspecified
CPT/HCPCS: 36415; 71045; 71275; 74177; 75625; 76770; 80048; 80053; 80061; 81001; 82150; 82550; 82553; 82948; 83036; 83690; 83735; 83880; 84436; 84443; 84479; 84484; 85025; 85610; 85730; 93005; 93306; 93458; 93880; 99284; C1766; J2001; J2250; J2270; J2405; J7030; J7050; Q9967